=== PATIENT | female | born 1955 | race Caucasian/White ===

== ENCOUNTER 2020-08-30 09:31 | Outpatient (REF) | payer OTHER, SELFPAY ==
[2020-08-30 16:21] LABS: CT PCR NOT DETECTED (Not Detect.); NG PCR NOT DETECTED (Not Detect.)
[2020-08-31 08:54] LABS: BV Int Neg Control Negative (Negative); BV Int Pos Control Positive (Positive)
[2020-09-02 05:47] LABS: HPV 16 RNA NOT DETECTED (NOT DETECTED); HPV mRNA E6/E7 rflx Detected (Not Detected)
== END 2020-08-30 09:32 | disposition home or self-care (01) ==
LOC: HO.LAB 09:31
PROVIDERS: Visit Provider Obstetrics & Gynecology
DX: Z01.419 Encounter for gynecological examination (general) (routine) without abnormal findings (principal); Z11.51 Encounter for screening for human papillomavirus (HPV); Z11.3 Encounter for screening for infections with a predominantly sexual mode of transmission; N95.0 Postmenopausal bleeding
CPT/HCPCS: 58100; 87480; 87491; 87510; 87591; 87624; 87625; 87660; 88141; 88142; 88305

== ENCOUNTER 2020-08-30 10:52 | Outpatient (REF) | payer OTHER, SELFPAY | END 2020-08-30 10:53 | disposition home or self-care (01) | LOC: HO.WFDLDS 10:52 | PROVIDERS: Visit Provider Obstetrics & Gynecology | DX: R53.83 Other fatigue (principal) | CPT/HCPCS: 36415; 84443 ==

== ENCOUNTER → 2020-09-06 09:22 | Outpatient (BNVA) | payer OTHER, SELFPAY | PROVIDERS: PCP Internal Medicine; Visit Provider Obstetrics & Gynecology ==

== ENCOUNTER → 2020-09-29 14:47 | Outpatient (BNVA) | payer OTHER, SELFPAY | PROVIDERS: Visit Provider Obstetrics & Gynecology | DX: N84.0 Polyp of corpus uteri (principal) | CPT/HCPCS: 99212 ==

== ENCOUNTER 2020-10-07 08:05 | Day surgery (SDC) | payer OTHER, SELFPAY ==
[2020-10-01 13:44] VITALS: BMI 33.0
--- NOTE | 2020-10-05 14:50 | HO.ANESPROP2 ---
Documented by User: Cristina Mayoney 10/05/20 14:50 HPI - Anesthesia Eval Consult details Narrative: 64yo F for D&C Hysteroscopy, Poss Myosure PMFSH Active Problems Active Problems: All Active Problems (Updated 09/29/20 @ 16:44 by Yessica Bryan MD) Endometrial polyp (Acute) Postmenopausal bleeding (Acute) Past Medical History Medical History Anxiety Depression HTN (hypertension) Postmenopausal bleeding Family History Family History Sister Bladder cancer Surgical History Surgical History Hx of abdominoplasty Hx of bilateral breast reduction surgery Hx of elbow surgery Social History Social History Alcohol intake: current Alcohol intake frequency: 0-2 drinks per day Alcohol type: wine Patient Tobacco Use Status: Former Tobacco user Tobacco use type: Cigarette Years Smoked: 30 Smoked in Last 30 Days: No Use of substances other than those prescribed or required for medical reasons: No Are you DNR?: No Advance Directives: No Advance Directives Information Provided: Yes Gender identity: female Meds Allergies Allergy/AdvReac Type Severity Reaction Status Date / Time acetaminophen [From Percocet] Allergy Mild Hives Verified 09/29/20 15:13 erythromycin base Allergy Mild Diarrhea Verified 09/29/20 15:13 [From Erythrocin] oxycodone [From Percocet] Allergy Mild Hives Verified 09/29/20 15:13 Home Medications Medication Instructions Recorded Confirmed Last Taken Type bupropion HCl 300 mg 24 hr tablet, 300 mg PO BEDTIME 08/30/20 Unknown History extended release clonazepam 0.5 mg tablet 0.5 mg PO BID PRN 08/30/20 Unknown History hydrochlorothiazide 25 mg tablet 25 mg PO DAILY 08/30/20 Unknown History hydroxyzine HCl 25 mg tablet [id number] mg PO BEDTIME PRN 08/30/20 Unknown History lisinopril 40 mg tablet 40 mg PO DAILY 08/30/20 Unknown History pravastatin 10 mg tablet 10 mg PO BEDTIME 08/30/20 Unknown History Exam Exam Date and Time: October 05, 2020 1450 Height,Weight and Vital Signs: Height 5 ft 6 in Weight 92.986 kg Assessment and Plan Assessment Anesthesia Assessment: Chart Reviewed Documented by User: Bell Grant 10/07/20 08:36 PMFSH Past Medical History Medical History Anxiety Depression HTN (hypertension) Postmenopausal bleeding Family History Family History Sister Bladder cancer Surgical History Surgical History Hx of abdominoplasty Hx of bilateral breast reduction surgery Hx of elbow surgery Social History Social History Alcohol intake: current Alcohol intake frequency: 0-2 drinks per day Alcohol type: wine Patient Tobacco Use Status: Former Tobacco user Tobacco use type: Cigarette Years Smoked: 30 Smoked in Last 30 Days: No Use of substances other than those prescribed or required for medical reasons: No Are you DNR?: No Advance Directives: No Advance Directives Information Provided: Yes Gender identity: female Meds Allergies Allergy/AdvReac Type Severity Reaction Status Date / Time acetaminophen [From Percocet] Allergy Mild Hives Verified 09/29/20 15:13 erythromycin base Allergy Mild Diarrhea Verified 09/29/20 15:13 [From Erythrocin] oxycodone [From Percocet] Allergy Mild Hives Verified 09/29/20 15:13 Home Medications Medication Instructions Recorded Confirmed Last Taken Type bupropion HCl 300 mg 24 hr tablet, 300 mg PO BEDTIME 08/30/20 Unknown History extended release clonazepam 0.5 mg tablet 0.5 mg PO BID PRN 08/30/20 Unknown History hydrochlorothiazide 25 mg tablet 25 mg PO DAILY 08/30/20 Unknown History hydroxyzine HCl 25 mg tablet [id number] mg PO BEDTIME PRN 08/30/20 Unknown History lisinopril 40 mg tablet 40 mg PO DAILY 08/30/20 Unknown History pravastatin 10 mg tablet 10 mg PO BEDTIME 08/30/20 Unknown History Exam Airway Mallampati Class: II TM Dist: >3cm Neck ROM: Full Loose/Missing/Broken Teeth: No Heart: RRR Lungs: CTA Assessment and Plan Assessment Anesthesia Assessment: Anesthesia Plan Discussed and Chart Reviewed Final Anesthetic Review NPO: Yes ASA Class: II Final Preanesthetic Review: Meds/Allgs Chart Reviewed, Consent Obtained/Reviewed and Anes Risks/Benef Reviewed Patient Risk: Low Procedure Risk: Low Anesthetic Plan Anesthetic Plan: GA Disposition: Standard PACU
[2020-10-07] VITALS (7 sets, daily range): BP systolic 122–142; BP diastolic 69–78; PULSE 65–69; RESP 16–18; TEMP 36.1–37.3; O2SAT 96–99; BMI 29.0
--- NOTE | 2020-10-07 08:37 | MHC.SHP ---
Pre-Procedural Eval Section A The patient is an INPATIENT: No Changes since office visit: No Cold of Flu in the past 2 weeks, No New Medical Problems, No Changes in Medication and No Patient answered all questions The History & Physical has been completed within 30 days and I have reviewed it.: Yes Section B Chief Complaint: PMB Allergies: Allergies Allergy/AdvReac Type Severity Reaction Status Date / Time acetaminophen [From Percocet] Allergy Mild Hives Verified 09/29/20 15:13 erythromycin base Allergy Mild Diarrhea Verified 09/29/20 15:13 [From Erythrocin] oxycodone [From Percocet] Allergy Mild Hives Verified 09/29/20 15:13 Plan I have reviewed the history and physical and performed a pertinent physical examination on my patient. No changes have occurred unless specified.
--- NOTE | 2020-10-07 08:38 | P.OP_ITS ---
Operative Note Operative Note Date of Service: 10/07/20 Narrative: Pre-Op Diagnoses: postmenopausal bleeding, endometrial polyp Post-Op Diagnoses: same as pre-op Procedures performed: hysteroscopy dilation and curettage with myosure Member Of [employer]: none Specimens: endometrial curettings Complications: none Disposition: PACU Ms. Verde is a 64yo postmenopausal woman who presents for scheduled hysteroscopy D&C with possible myosure for finding of endometrial polyp on endometrial biopsy done for evaluation of postmenopausal bleeding. Surgical Risks: The patient was informed of the risks and benefits of a hysteroscopy with dilation and curettage. Risks included but were not limited to bleeding, infection, injury to the vulva, vagina, or cervix, and uterine perforation with possible need for further surgery. The patient expressed understanding of the risks involved, all questions were answered, and the patient consented to the procedure. The patient was taken to the operating room where a time out was confirmed to confirm correct patient and correct procedure. Adequate general anesthesia was established. The patient was then positioned on the operating table in the dorsal lithotomy position with her legs supported using stirrups. All pressure points were padded and a warm blanket was placed to maintain control of core body temperature. The patient was then prepped and draped in the usual sterile fashion. A bimanual exam was performed and the uterus was found to be approx imately 6 cm size, anteverted. No adnexal masses were palpated. A straight catheter was inserted into the bladder and 75mL of urine was obtained. A bivalve speculum was then inserted into the vagina. The anterior lip of the cervix was visualized and grasped using a single tooth tenaculum. A paracervical block was performed by injecting 6mL each of 0.5% bupivicaine at the cervico- vaginal junction at 4 and 8 o'clock. The cervix was dilated with a single [place] dilator for the introduction of the hysteroscope; further dilation was performed using hydrodilation with the hysteroscope under direct visualization using normal saline solution as the distending media. A large polyp was noted which filled the uterine cavity. The myosure device was inserted through the hysteroscope and used to remove the polyp under direct visualization. The uterine cavity was then inspected and appeared grossly normal with both ostia visualized. There was an additional area of polypoid appearing tissue with incre ased vasculature just superior to the right ostia. The myosure device was used again to sample this area directly. The hysteroscope was then removed with the myosure within the sleeve of the scope and a sharp curetting was performed starting at the 12 o?clock position and rotating a total of 360 degrees in order to cover all surfaces. Endometrial tissue was obtained and was sent to pathology. Following the curetting, good hemostasis was noted. The single-tooth tenaculum was removed from the anterior lip of the cervix and hemostasis was also noted at the tenaculum puncture sites. The speculum was then removed from the vagina. At the end of the procedure, all needle, sponge, and instrument counts were noted to be correct x2. The patient was transferred to the recovery room in stable condition.
[2020-10-07] MEDS: Lactated Ringers 1,000 ML 100 ML IVCONT (08:40)
== END 2020-10-07 10:56 | disposition home or self-care (01) ==
LOC: HO.SSS 08:06
PROVIDERS: Visit Provider Obstetrics & Gynecology
PROC: 0UDB8ZZ Extraction of Endometrium, Via Natural or Artificial Opening Endoscopic (ICD-10-PCS; CPT 58558; principal; 2020-10-07 09:30)
DX: N95.0 Postmenopausal bleeding (principal); N84.0 Polyp of corpus uteri; I10 Essential (primary) hypertension; F32.9 Major depressive disorder, single episode, unspecified; Z79.899 Other long term (current) drug therapy; Z88.8 Allergy status to other drugs, medicaments and biological substances; Z87.891 Personal history of nicotine dependence
CPT/HCPCS: 58558; 88305; J1100; J1885; J2250; J2405; J3010

== ENCOUNTER → 2020-10-25 11:02 | Outpatient (BNVA) | payer OTHER, SELFPAY | PROVIDERS: Visit Provider Obstetrics & Gynecology ==